=== PATIENT | male | born 1950 | race Asian ===

== ENCOUNTER → 2018-06-05 | Outpatient (CLI) | payer MEDICARE | END | disposition home or self-care (01) | LOC: CFH 07:48 | PROVIDERS: ATTEND Internal Medicine | DX: K80.20 Calculus of gallbladder without cholecystitis without obstruction (principal); K74.60 Unspecified cirrhosis of liver; B19.20 Unspecified viral hepatitis C without hepatic coma | CPT/HCPCS: 76700 ==

== ENCOUNTER 2018-06-08 20:07 | Inpatient (IN) | payer MEDICARE ==
[~2018-06-08] VITALS: Ht 167.6 cm; Wt 54.6 kg
[2018-06-08 20:30] LABS: BASOPHILS # (AUTO) 0.02 x10^3/uL (0-0.1); BASOPHILS % (AUTO) 0 % (0-1); EOSINOPHILS # (AUTO) 0.05 x10^3/uL (0-0.4); EOSINOPHILS % (AUTO) 0 % (1-7); LYMPHOCYTES # (AUTO) 1.27 x10^3/uL (1-3.4); LYMPHOCYTES % (AUTO) 11 % (22-44); MD NO; MEAN CORPUSCULAR HEMOGLOBIN 33.6 pg (27.5-34.5); MEAN CORPUSCULAR HGB CONC 34.3 g/dL (33.2-36.2); MEAN CORPUSCULAR VOLUME 97.9 fL (81-97); MEAN PLATELET VOLUME 6.7 fL (7.4-10.4); MONOCYTES # (AUTO) 0.54 x10^3/uL (0.2-0.8); MONOCYTES % (AUTO) 5 % (2-9); NEUTROPHILS # (AUTO) 9.49 x10^3/uL (1.8-6.8); NEUTROPHILS % (AUTO) 84 % (42-75); PLATELET COUNT 322 x10^3/uL (130-400); RED BLOOD COUNT 4.74 x10^6/uL (4.38-5.82); RED CELL DISTRIBUTION WIDTH 13.5 % (9.4-14.8)
[2018-06-08] MEDS ORDERED: SULF-169 PO (20:32)
[2018-06-08] MEDS ORDERED: COLC0.6T37 PO (20:32)
[2018-06-08 20:41] LABS: ALANINE AMINOTRANSFERASE 140 U/L (12-78); ALBUMIN 3.4 g/dL (3.4-5.0); ANION GAP 8 mmol/L (5-15); CALCIUM 9.2 mg/dL (8.5-10.1); CHLORIDE 101 mmol/L (98-107)
[2018-06-08 20:43] LABS: ALKALINE PHOSPHATASE 141 U/L (45-117); BILIRUBIN,TOTAL 0.7 mg/dL (0.2-1.0); TOTAL PROTEIN 8.3 g/dL (6.4-8.2)
[2018-06-08 20:47] LABS: TROPONIN I < 0.015 ng/mL (0.000-0.045)
[2018-06-08] MEDS ORDERED: SODIUM CHLORIDE 0.9% 1,000 ML IV ONE (21:01)
[2018-06-08 21:16] LABS: INTERNATIONAL NORMALIZED RATIO 1.11 (0.93-1.1); PROTHROMBIN TIME 11.5 Seconds (9.6-11.5)
[2018-06-08 21:48] LABS: MICROSCOPIC NOT IND
[2018-06-08 21:52] LABS: CULTURE INDICATED? NO
[2018-06-08] MEDS ORDERED: ONDANSETRON 2MG/ML, 2ML IVPush PRN (22:30)
[2018-06-08] MEDS ORDERED: LABETALOL 5MG/ML, 20ML IVPush PRN (22:30)
[2018-06-08] MEDS ORDERED: morphine SULFATE 10 MG/ML, 1ML IVPush PRN (22:30)
[2018-06-08] MEDS ORDERED: BISACODYL 10 MG SUPP PR PRN (22:30)
[2018-06-08] MEDS ORDERED: ENALAPRILAT 1.25 MG/ML, 2ML IVPush PRN (22:30)
[2018-06-08] MEDS ORDERED: DOCUSATE 100 MG CAPSULE PO PRN (22:30)
[2018-06-08] MEDS ORDERED: ONDANSETRON ODT 4 MG PO PRN (22:30)
[2018-06-08] MEDS: SODIUM CHLORIDE 0.9% 1,000 ML IV SCH (22:53)
[2018-06-08] MEDS: HEPARIN 5,000 UNITS/ML, 1ML SQ SCH (22:54)
[2018-06-09 01:27] VITALS: BP 150/84
[2018-06-09 01:50] LABS: OCCULT BLOOD POSITIVE (NEGATIVE)
[2018-06-09 02:04] VITALS: BP 143/78
[2018-06-09 04:55] LABS: CLOSTRIDIUM DIFFICILE ANTIGEN NEGATIVE; CLOSTRIDIUM DIFFICILE TOXIN NEGATIVE (Negative)
[2018-06-09 05:43] LABS: BASOPHILS # (AUTO) 0.03 x10^3/uL (0-0.1); BASOPHILS % (AUTO) 0 % (0-1); EOSINOPHILS # (AUTO) 0.17 x10^3/uL (0-0.4); EOSINOPHILS % (AUTO) 2 % (1-7); LYMPHOCYTES # (AUTO) 1.71 x10^3/uL (1-3.4); LYMPHOCYTES % (AUTO) 17 % (22-44); MD NO; MEAN CORPUSCULAR HEMOGLOBIN 33.7 pg (27.5-34.5); MEAN CORPUSCULAR HGB CONC 34.3 g/dL (33.2-36.2); MEAN CORPUSCULAR VOLUME 98.4 fL (81-97); MEAN PLATELET VOLUME 6.9 fL (7.4-10.4); MONOCYTES # (AUTO) 1.07 x10^3/uL (0.2-0.8); MONOCYTES % (AUTO) 10 % (2-9); NEUTROPHILS # (AUTO) 7.39 x10^3/uL (1.8-6.8); NEUTROPHILS % (AUTO) 71 % (42-75); PLATELET COUNT 249 x10^3/uL (130-400); RED BLOOD COUNT 4.31 x10^6/uL (4.38-5.82); RED CELL DISTRIBUTION WIDTH 13.7 % (9.4-14.8)
[2018-06-09 05:53] LABS: CHLORIDE 105 mmol/L (98-107)
[2018-06-09 06:14] LABS: % IRON SATURATION 28 % (20-55); ALANINE AMINOTRANSFERASE 118 U/L (12-78); ALBUMIN 2.8 g/dL (3.4-5.0); ALKALINE PHOSPHATASE 114 U/L (45-117); ANION GAP 10 mmol/L (5-15); BILIRUBIN,TOTAL 0.7 mg/dL (0.2-1.0); CALCIUM 8.4 mg/dL (8.5-10.1); CHOL/HDL RATIO 3.7; CHOLESTEROL, TOTAL 115 mg/dL (140-239); CREATININE 1.15 mg/dL (0.7-1.3); HDL CHOL % 27 % (26-37); HDL CHOLESTEROL (DIRECT) 31 mg/dL (40-60); IRON LEVEL 85 mcg/dL (65-175); TOTAL IRON BINDING CAPACITY 300 mcg/dL (250-450); TOTAL PROTEIN 7.1 g/dL (6.4-8.2); TRIGLYCERIDES 107 mg/dL (50-200); VLDL CHOLESTEROL 21 mg/dL (0-25)
[2018-06-09 06:15] LABS: LDL CHOLESTEROL,CALCULATED 63 mg/dL (54-169)
[2018-06-09] MEDS: HEPARIN 5,000 UNITS/ML, 1ML SQ SCH ×3 (07:00→23:00)
[2018-06-09 07:20] VITALS: BP 131/73
[2018-06-09] MEDS: SENNA/DOCUSATE TABLET PO SCH (09:00)
[2018-06-09] MEDS: SODIUM CHLORIDE 0.9% 1,000 ML IV SCH ×2 (11:46→23:50)
[2018-06-09 14:30] VITALS: BP 149/76
[2018-06-09 17:23] LABS: PSA SCREEN 0.36 ng/mL (0.00-4.00)
[2018-06-09 19:43] VITALS: BP 129/78
[2018-06-09] MEDS: OMEPRAZOLE 20 MG CAPSULE.DR PO SCH (20:38)
[2018-06-10 01:26] VITALS: BP 137/75
[2018-06-10 05:02] LABS: BASOPHILS # (AUTO) 0.04 x10^3/uL (0-0.1); BASOPHILS % (AUTO) 1 % (0-1); EOSINOPHILS # (AUTO) 0.13 x10^3/uL (0-0.4); EOSINOPHILS % (AUTO) 2 % (1-7); LYMPHOCYTES # (AUTO) 1.74 x10^3/uL (1-3.4); LYMPHOCYTES % (AUTO) 21 % (22-44); MD NO; MEAN CORPUSCULAR HEMOGLOBIN 33.4 pg (27.5-34.5); MEAN CORPUSCULAR HGB CONC 33.8 g/dL (33.2-36.2); MEAN CORPUSCULAR VOLUME 99.1 fL (81-97); MEAN PLATELET VOLUME 6.8 fL (7.4-10.4); MONOCYTES # (AUTO) 0.88 x10^3/uL (0.2-0.8); MONOCYTES % (AUTO) 11 % (2-9); NEUTROPHILS # (AUTO) 5.39 x10^3/uL (1.8-6.8); NEUTROPHILS % (AUTO) 66 % (42-75); PLATELET COUNT 198 x10^3/uL (130-400); RED BLOOD COUNT 4.26 x10^6/uL (4.38-5.82); RED CELL DISTRIBUTION WIDTH 13.5 % (9.4-14.8)
[2018-06-10 05:06] LABS: ALBUMIN 2.4 g/dL (3.4-5.0); ANION GAP 8 mmol/L (5-15); CHLORIDE 110 mmol/L (98-107)
[2018-06-10 05:36] LABS: ALANINE AMINOTRANSFERASE 99 U/L (12-78); ALKALINE PHOSPHATASE 95 U/L (45-117); BILIRUBIN,TOTAL 0.8 mg/dL (0.2-1.0); TOTAL PROTEIN 6.2 g/dL (6.4-8.2)
[2018-06-10] MEDS: HEPARIN 5,000 UNITS/ML, 1ML SQ SCH ×3 (07:00→22:33)
[2018-06-10 08:17] VITALS: BP 143/79
[2018-06-10] MEDS: SENNA/DOCUSATE TABLET PO SCH (08:17)
[2018-06-10] MEDS: OMEPRAZOLE 20 MG CAPSULE.DR PO SCH ×2 (08:17→20:11)
[2018-06-10] MEDS ORDERED: POTASSIUM PHOSPHATE 44 MEQ in SODIUM CHLORIDE 0.9% 500 ML IV ONE (10:00)
[2018-06-10] MEDS ORDERED: MAGNESIUM SULFATE PMX 2GM/50ML 50 ML IV ONE (10:00)
[2018-06-10] MEDS: MAGNESIUM CHLORIDE 64 MG TABLET.DR PO SCH ×2 (12:42→20:11)
[2018-06-10 14:30] VITALS: BP 145/80
[2018-06-10 20:04] VITALS: BP 148/92
[2018-06-10] MEDS: SODIUM CHLORIDE 0.9% 1,000 ML IV SCH (22:32)
[2018-06-11 01:35] VITALS: BP 130/80
[2018-06-11 05:50] LABS: ALANINE AMINOTRANSFERASE 101 U/L (12-78); ALBUMIN 2.7 g/dL (3.4-5.0); ANION GAP 7 mmol/L (5-15); CALCIUM 8.7 mg/dL (8.5-10.1); CHLORIDE 110 mmol/L (98-107); CREATININE 0.82 mg/dL (0.7-1.3)
[2018-06-11 05:52] LABS: ALKALINE PHOSPHATASE 108 U/L (45-117); BILIRUBIN,TOTAL 0.5 mg/dL (0.2-1.0); TOTAL PROTEIN 6.9 g/dL (6.4-8.2)
[2018-06-11] MEDS: HEPARIN 5,000 UNITS/ML, 1ML SQ SCH ×2 (07:00→15:21)
[2018-06-11 08:31] VITALS: BP 157/78
[2018-06-11] MEDS: OMEPRAZOLE 20 MG CAPSULE.DR PO SCH (08:34)
[2018-06-11] MEDS: SENNA/DOCUSATE TABLET PO SCH (08:34)
[2018-06-11] MEDS: MAGNESIUM CHLORIDE 64 MG TABLET.DR PO SCH (08:35)
[2018-06-11] MEDS: SODIUM CHLORIDE 0.9% 1,000 ML IV SCH (12:33)
[2018-06-11 14:08] VITALS: BP 158/79
[2018-06-11 14:20] LABS: OCCULT BLOOD NEGATIVE (NEGATIVE)
[2018-06-11] MEDS ORDERED: ERGOCALCIFEROL 50,000 UNIT CAPSULE PO SCH (16:00)
[2018-06-11] MEDS ORDERED: ERGO500017 PO (16:08)
[2018-06-11] MEDS ORDERED: OMEP-110 PO (16:08)
== END 2018-06-11 17:51 | disposition home or self-care (01) | DRG 438 ==
LOC: ED 21:05 → EDIP 21:52 → 3NE 22:06
PROVIDERS: ADMIT Internal Medicine; ATTEND Internal Medicine
DX: K85.10 Biliary acute pancreatitis without necrosis or infection (principal); N17.0 Acute kidney failure with tubular necrosis; E87.1 Hypo-osmolality and hyponatremia; N39.0 Urinary tract infection, site not specified; B19.20 Unspecified viral hepatitis C without hepatic coma; E55.9 Vitamin D deficiency, unspecified; E86.0 Dehydration; I10 Essential (primary) hypertension; M10.9 Gout, unspecified; K80.20 Calculus of gallbladder without cholecystitis without obstruction; K52.9 Noninfective gastroenteritis and colitis, unspecified; Z87.11 Personal history of peptic ulcer disease; Z87.891 Personal history of nicotine dependence
CPT/HCPCS: 36415; 71045; 74181; 74250; 76700; 80053; 80061; 80074; 81003; 82272; 82306; 82378; 82607; 83540; 83550; 83690; 83735; 84100; 84443; 84484; 84550; 85025; 85610; 87324; 87521; 93005; 99285; G0103; J3475; J7030; J7040

== ENCOUNTER 2018-07-06 07:55 | Inpatient (IN) | payer MEDICARE ==
[~2018-07-06] VITALS: Ht 167.6 cm; Wt 57.0 kg
[~2018-07-06 07:55] MED LIST: COLC0.6T37 PO; ERGO500017 PO; OMEP-110 PO; SULF-169 PO
[2018-07-06] MEDS ORDERED: COLCHICINE 0.6 MG TABLET ONE (08:29)
[2018-07-06] MEDS ORDERED: COLCHICINE 0.6 MG TABLET PO ONE (08:30)
[2018-07-06] MEDS ORDERED: LIDOCAINE-MPF 2%, 2ML ONE (09:50)
[2018-07-06] MEDS ORDERED: LIDOCAINE 2%, 20ML SQ ONE (10:00)
[2018-07-06] MEDS ORDERED: AMPICILLIN/SULBACTAM 3 GM in SODIUM CHLORIDE 0.9% 100 ML IVPB ONE (10:30)
[2018-07-06] MEDS ORDERED: SODIUM CHLORIDE FLUSH 10ML SYR IVF ONE (10:30)
[2018-07-06 10:34] LABS: BASOPHILS # (AUTO) 0.03 x10^3/uL (0-0.1); BASOPHILS % (AUTO) 0 % (0-1); EOSINOPHILS % (AUTO) 0 % (1-7); LYMPHOCYTES # (AUTO) 1.29 x10^3/uL (1-3.4); LYMPHOCYTES % (AUTO) 11 % (22-44); MD NO; MEAN CORPUSCULAR HEMOGLOBIN 33.5 pg (27.5-34.5); MEAN CORPUSCULAR HGB CONC 34.5 g/dL (33.2-36.2); MEAN CORPUSCULAR VOLUME 97.1 fL (81-97); MEAN PLATELET VOLUME 7.1 fL (7.4-10.4); MONOCYTES # (AUTO) 0.66 x10^3/uL (0.2-0.8); MONOCYTES % (AUTO) 5 % (2-9); NEUTROPHILS # (AUTO) 10.16 x10^3/uL (1.8-6.8); NEUTROPHILS % (AUTO) 84 % (42-75); PLATELET COUNT 241 x10^3/uL (130-400); RED BLOOD COUNT 3.07 x10^6/uL (4.38-5.82); RED CELL DISTRIBUTION WIDTH 14.5 % (9.4-14.8)
[2018-07-06 10:50] LABS: ALBUMIN 2.8 g/dL (3.4-5.0); ANION GAP 10 mmol/L (5-15); CALCIUM 8.4 mg/dL (8.5-10.1); CHLORIDE 98 mmol/L (98-107); CREATININE 0.76 mg/dL (0.7-1.3)
[2018-07-06 10:59] LABS: SYN CELLS COUNTED 74
[2018-07-06 11:17] LABS: HCT (SEDRATE) 29.8 % (39.2-51.8)
[2018-07-06] MEDS ORDERED: ERGOCALCIFEROL 50,000 UNIT CAPSULE PO SCH (11:30)
[2018-07-06] MEDS ORDERED: VANCOMYCIN PER PHARMACY MC PRN (11:30)
[2018-07-06] MEDS ORDERED: TEMAZEPAM 15 MG CAPSULE PO PRN (12:00)
[2018-07-06] MEDS ORDERED: KETOROLAC 30 MG/1 ML IV PRN (12:00)
[2018-07-06] MEDS ORDERED: ACETAMINOPHEN 325 MG TABLET PO PRN (12:00)
[2018-07-06] MEDS ORDERED: ENALAPRILAT 1.25 MG/ML, 2ML IVPush PRN (12:00)
[2018-07-06] MEDS ORDERED: POLYETHYLENE GLYCOL 17 GM PACKET PO PRN (12:00)
[2018-07-06] MEDS ORDERED: ONDANSETRON 2MG/ML, 2ML IVPush PRN (12:00)
[2018-07-06 12:10] LABS: FREE T4 (FREE THYROXINE) 1.7 ng/dL (0.76-1.46); THYROID STIMULATING HORMONE 1.37 mIU/L (0.358-3.740)
[2018-07-06] MEDS ORDERED: PHARMACOKINETIC CONSULTATION MC ONE (12:30)
[2018-07-06] MEDS ORDERED: PHARMACOKINETIC MONITORING MC PRN (12:30)
[2018-07-06] MEDS: OMEPRAZOLE 20 MG CAPSULE.DR PO SCH ×2 (12:58→20:12)
[2018-07-06] MEDS: COLCHICINE 0.6 MG TABLET PO SCH (12:58)
[2018-07-06] MEDS: POTASSIUM CHLORIDE 20 MEQ TAB.ER.PRT PO SCH ×2 (12:58→15:25)
[2018-07-06] MEDS: VANCOMYCIN PMX 1GM/200ML 200 ML IV SCH (12:59)
[2018-07-06] MEDS: ENOXAPARIN 40 MG/0.4 ML SQ SCH (12:59)
[2018-07-06] MEDS: SODIUM CHLORIDE 0.9% 1,000 ML IV SCH ×2 (12:59→23:15)
[2018-07-06 13:22] LABS: HEMOGLOBIN A1C 4.6 % (4.2-6.3)
[2018-07-06 14:00] VITALS: BP 118/74
[2018-07-06 14:58] VITALS: BP 121/73
[2018-07-06] MEDS: AMPICILLIN/SULBACTAM 3 GM in SODIUM CHLORIDE 0.9% 100 ML IV SCH ×2 (17:47→23:15)
[2018-07-06 20:00] VITALS: BP 123/68
[2018-07-07 01:13] VITALS: BP 122/68
[2018-07-07 05:14] LABS: BASOPHILS # (AUTO) 0.02 x10^3/uL (0-0.1); BASOPHILS % (AUTO) 0 % (0-1); EOSINOPHILS % (AUTO) 0 % (1-7); LYMPHOCYTES # (AUTO) 1.23 x10^3/uL (1-3.4); LYMPHOCYTES % (AUTO) 13 % (22-44); MD NO; MEAN CORPUSCULAR HEMOGLOBIN 33.3 pg (27.5-34.5); MEAN CORPUSCULAR HGB CONC 33.9 g/dL (33.2-36.2); MEAN CORPUSCULAR VOLUME 98.3 fL (81-97); MEAN PLATELET VOLUME 6.9 fL (7.4-10.4); MONOCYTES # (AUTO) 0.95 x10^3/uL (0.2-0.8); MONOCYTES % (AUTO) 10 % (2-9); NEUTROPHILS # (AUTO) 6.97 x10^3/uL (1.8-6.8); NEUTROPHILS % (AUTO) 76 % (42-75); PLATELET COUNT 214 x10^3/uL (130-400); RED BLOOD COUNT 2.74 x10^6/uL (4.38-5.82); RED CELL DISTRIBUTION WIDTH 14.2 % (9.4-14.8)
[2018-07-07 05:19] LABS: ALBUMIN 2.2 g/dL (3.4-5.0); ANION GAP 8 mmol/L (5-15); CHLORIDE 106 mmol/L (98-107)
[2018-07-07 05:25] LABS: ALANINE AMINOTRANSFERASE 51 U/L (12-78); ALKALINE PHOSPHATASE 72 U/L (45-117); BILIRUBIN,TOTAL 1.1 mg/dL (0.2-1.0); CREATININE 0.56 mg/dL (0.7-1.3); TOTAL PROTEIN 6.5 g/dL (6.4-8.2)
[2018-07-07] MEDS: AMPICILLIN/SULBACTAM 3 GM in SODIUM CHLORIDE 0.9% 100 ML IV SCH ×2 (06:09→11:48)
[2018-07-07 06:52] VITALS: BP 118/64
[2018-07-07] MEDS: COLCHICINE 0.6 MG TABLET PO SCH (08:03)
[2018-07-07] MEDS: SODIUM CHLORIDE 0.9% 1,000 ML IV SCH (08:04)
[2018-07-07] MEDS: OMEPRAZOLE 20 MG CAPSULE.DR PO SCH (08:04)
[2018-07-07] MEDS: ENOXAPARIN 40 MG/0.4 ML SQ SCH (13:30)
[2018-07-07] MEDS: VANCOMYCIN PMX 1GM/200ML 200 ML IV SCH (13:30)
[2018-07-07 13:51] VITALS: BP 125/67
== END 2018-07-07 14:50 | disposition left against medical advice (07) | DRG 553 ==
LOC: ED 09:12 → EDIP 10:19 → 4NOR 12:15
PROVIDERS: ADMIT Hospitalist; ATTEND Hospitalist
PROC: 0S9D3ZZ Drainage of Left Knee Joint, Percutaneous Approach (ICD-10-PCS; principal; 2018-07-06)
DX: M1A.9XX0 Chronic gout, unspecified, without tophus (tophi) (principal); E43 Unspecified severe protein-calorie malnutrition; E87.6 Hypokalemia; G89.29 Other chronic pain; I10 Essential (primary) hypertension; K21.9 Gastro-esophageal reflux disease without esophagitis; K80.70 Calculus of gallbladder and bile duct without cholecystitis without obstruction; Z53.21 Procedure and treatment not carried out due to patient leaving prior to being seen by health care provider; Z80.3 Family history of malignant neoplasm of breast; Z87.11 Personal history of peptic ulcer disease; Z87.891 Personal history of nicotine dependence; Z90.89 Acquired absence of other organs
CPT/HCPCS: 36415; 80048; 80053; 82040; 82945; 83036; 83605; 83615; 83735; 84100; 84145; 84157; 84439; 84443; 84550; 84560; 85025; 85651; 85810; 86141; 87040; 87070; 87205; 89050; 89060; 96372; 96374; 99285; J0295; J1650; J3370; J3490; J7030

== ENCOUNTER 2018-09-28 08:50 | Day surgery (SDC) | payer MEDICARE ==
[~2018-09-28] VITALS: Ht 167.6 cm; Wt 58.9 kg
[~2018-09-28 08:50] MED LIST changes: +ALLO300T PO; +ASCO1500 PO; +BUPIVACAINE/PF 0.5% ONE; +CHOL10003 PO; +EPINEPHRINE 1 MG/ML, 1ML ONE; +VITAMIN B12 PO; +VITAMIN B5 PO
[2018-09-28] MEDS ORDERED: LACTATED RINGERS 1,000 ML IV SCH (09:20)
[2018-09-28 09:23] VITALS: BP 148/94
[2018-09-28] MEDS ORDERED: SCOPOLAMINE PATCH, 1.5MG PATCH.TD72 TD ONE (09:30)
[2018-09-28] MEDS ORDERED: ACETAMINOPHEN 500 MG TABLET PO ONE (09:30)
[2018-09-28] MEDS ORDERED: ONDANSETRON ODT 8 MG PO ONE (09:30)
[2018-09-28] MEDS ORDERED: GABAPENTIN 300 MG CAPSULE PO ONE (09:30)
[2018-09-28] MEDS ORDERED: MIDAZOLAM 1 MG/ML, 2ML ONE (10:40)
[2018-09-28] MEDS ORDERED: FENTANYL PF 250 MCG/5ML ONE (10:41)
[2018-09-28] MEDS ORDERED: PROPOFOL 10 MG/ML, 50ML ONE (10:48)
[2018-09-28] MEDS ORDERED: SUCCINYLCHOLINE 20 MG/ML, 10ML ONE (10:48)
[2018-09-28] MEDS ORDERED: ROCURONIUM 10 MG/ML,10ML ONE (10:48)
[2018-09-28] MEDS ORDERED: LABETALOL 5MG/ML, 20ML IV PRN (11:30)
[2018-09-28] MEDS ORDERED: MIDAZOLAM 1 MG/ML, 2ML IV PRN (11:30)
[2018-09-28] MEDS ORDERED: DIPHENHYDRAMINE 50 MG/ML, 1ML IVPush PRN (11:30)
[2018-09-28] MEDS ORDERED: OXYcodone 5 MG/5 ML ORAL.SOL UDC PO PRN (11:30)
[2018-09-28] MEDS ORDERED: ONDANSETRON 2MG/ML, 2ML IV PRN (11:30)
[2018-09-28] MEDS ORDERED: EPHEDRINE 50 MG/ML, 1ML IVPush PRN (11:30)
[2018-09-28] MEDS ORDERED: MEPERIDINE/PF 25MG/0.5ML IVPush PRN (11:30)
[2018-09-28] MEDS ORDERED: PROMETHAZINE 12.5 MG SUPP PR PRN (11:30)
[2018-09-28] MEDS ORDERED: PROMETHAZINE 25 MG/ML, 1ML IV PRN (11:30)
[2018-09-28] MEDS ORDERED: MORPHINE SULFATE 4 MG/ML, 1ML IVPush PRN (11:30)
[2018-09-28] MEDS ORDERED: FENTANYL PF 100 MCG/2ML IV PRN (11:30)
[2018-09-28] MEDS ORDERED: EPHEDRINE 50 MG/ML, 1ML IM PRN (11:30)
[2018-09-28] MEDS ORDERED: PROMETHAZINE 25 MG SUPP PR PRN (11:30)
[2018-09-28] MEDS ORDERED: PROPOFOL 10 MG/ML, 20ML ONE (12:00)
[2018-09-28] MEDS ORDERED: CEFAZOLIN 1,000 MG ONE (12:00)
[2018-09-28] MEDS ORDERED: ONDANSETRON 2MG/ML, 2ML ONE (12:00)
[2018-09-28] MEDS ORDERED: DEXAMETHASONE 4 MG/ML, 1ML ONE (12:00)
[2018-09-28] MEDS ORDERED: HYDROcodone/APAP 5/325 TABLET ONE (14:15)
== END 2018-09-28 14:20 | disposition home or self-care (01) ==
LOC: OUT 08:50
PROVIDERS: ATTEND Surgery
DX: K80.10 Calculus of gallbladder with chronic cholecystitis without obstruction (principal); R59.1 Generalized enlarged lymph nodes; Z86.19 Personal history of other infectious and parasitic diseases; Z98.890 Other specified postprocedural states
CPT/HCPCS: 47562; 88304; 93005; J0171; J0330; J0690; J1100; J2250; J2405; J2704; J3010; J3490; J7120; Q0162

== ENCOUNTER → 2019-01-05 | Outpatient (CLI) | payer MEDICARE ==
[~2019-01-05] MED LIST changes: -BUPIVACAINE/PF 0.5% ONE; -EPINEPHRINE 1 MG/ML, 1ML ONE; +OMNIPAQUE 350 MG/ML, 100ML BOTTLE ONE
== END | disposition home or self-care (01) ==
LOC: CFH 13:43
PROVIDERS: ATTEND Internal Medicine
DX: K74.60 Unspecified cirrhosis of liver (principal); Z90.49 Acquired absence of other specified parts of digestive tract
CPT/HCPCS: 74170; Q9967